=== PATIENT | male | born 2000 | race Caucasian/White ===

== ENCOUNTER 2019-05-08 20:33 | Emergency (ER) | payer BC, SELFPAY ==
[2019-05-08 20:34] VITALS: BP 132/76; PULSE 104; RESP 18; TEMP 36.5; O2SAT 100; BMI 20.4
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
--- NOTE | 2019-05-08 20:41 | ED.RN ---
MASK PLACED FOR STAFF PROTECTION.
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
[2019-05-08] MEDS: Ziprasidone IM 20 MG/ML VIAL IM (20:53)
--- NOTE | 2019-05-08 21:13 | ED.RN ---
TOBIAS GIVEN AT 2044 FOR PT AND STAFF SAFETY. IV DRAWN RIGHT HAND. PT GETTING MORE SEDATE BUT WILL ABRUPTLY SIT UP IN BED. SEIZURE PADS PLACED TO PREVENT PT HARM WHILE THRASHING. SITTER AT BEDSIDE.
[2019-05-08 21:15] LABS: Absolute Lymphocyte Count 2.52 X10^3/uL (0.83-4.51); Absolute Neutrophil Count 3.2 X10^3/uL (2.0-7.7); Basophil# 0.05 X10^3/uL; Basophil% 0.8 % (0-1); Eosinophil# 0.17 X10^3/uL; Eosinophils% 2.6 % (0-5); Hematocrit 45.4 % (40-54); Hemoglobin 15.7 g/dL (13.0-16.5); Lymphocyte # 2.52 X10^3/ul (4.0); Lymphocyte % 37.9 % (19-41); Mean Corp Hgb Conc 34.6 g/dL (32-36); Mean Corpuscular Hgb 29.2 pg (27.0-32.0); Mean Corpuscular Volume 84.4 fL (80-94); Mean Platelet Vol. 9.3 fl (6.2-12.0); Monocyte% 10.5 % (0-10); NRBC Flagged by Analyzer 0 % (0-5); Neutrophil # 3.19 X10^3/uL (2.7-7.7); Neutrophil % 47.9 % (47-70); Platelet Count 393 K/mm3 (150-450); RBC Distribution Width SD 36.6 fl (35.1-43.9); Red Blood Count 5.38 M/mm3 (4.6-6.2); White Blood Count 6.7 K/mm3 (4.4-11.0)
[2019-05-08 21:27] LABS: Anion Gap 15 (5-15); BUN 7 mg/dL (7-18); BUN/Creat Ratio 8.2 RATIO (10-20); Calcium,Total 9.1 mg/dL (8.5-10.1); Chloride 107 mmol/L (98-107); Creatinine, Serum 0.86 mg/dL (0.70-1.30); EST Glomerular Filtration Rate 121 mL/min (>60); Est Glom Filt Rate - Afr Amer 147 mL/min (>60); Estimated Creatinine Clearance 112.13 ml/min; Glucose 108 mg/dL (74-106); Potassium 2.8 mmol/L (3.5-5.1); Sodium Level 138 mmol/L (136-145)
[2019-05-08 21:28] LABS: Amphetamine Urine VISTA NEGATIVE (<1000 ng/mL); Barbiturate Urine VISTA NEGATIVE (< 200 ng/mL); Benzodiazepine Urine VISTA NEGATIVE (< 200 ng/mL); Cocaine Urine VISTA NEGATIVE (< 300 ng/mL); Ecstacy Urine VISTA NEGATIVE (< 500 ng/mL); Methadone Urine VISTA NEGATIVE (< 300 ng/mL); PCP Urine VISTA NEGATIVE (< 25 ng/mL); THC Urine VISTA NEGATIVE (< 50 ng/mL); Vista UDS pH Range 5
[2019-05-08 22:12] VITALS: RESP 16
[2019-05-08 23:47] VITALS: RESP 15
[2019-05-09] VITALS: RESP 15
[2019-05-09 01:24] VITALS: BP 99/65; PULSE 77; RESP 16; O2SAT 98
[2019-05-09 02:42] VITALS: BP 109/66; PULSE 75; RESP 17; O2SAT 99
--- NOTE | 2019-05-09 05:06 | NURSING ---
CALLED CRISIS AT [phone]
--- NOTE | 2019-05-09 05:34 | ED.DEP ---
ED Disposition - Plan for ED Patient: Disposition: Home or Assisted Living Diagnosis: Alcohol intoxication, Suicidal thoughts Instructions: CONTRACT, No Harm, Alcohol Overdose Referrals: Counseling,Center [GROUP OF PHYSICIANS] - As soon as possible (call Friday for appt)
[2019-05-09 05:52] VITALS: BP 116/85; PULSE 103; RESP 20; O2SAT 97
--- NOTE | 2019-05-09 05:59 | ED.RN ---
PATIENT CALLED HIS MOTHER WHO LIVES IN [place] TO COME AND PICK HIM UP. HE CALLED HER AND HE SAID SHE IS COMING TO GET HIM.
--- NOTE | 2019-05-09 08:05 | ED.RN ---
mom present . pt and mother asking what happened. pt does not remember anything. pt okay with talking in front of mother.
[2019-05-09 08:16] VITALS: BP 117/75; PULSE 98; RESP 17; O2SAT 100
== END 2019-05-09 08:10 | disposition home or self-care (01) ==
PROVIDERS: Emergency Provider Emergency Medicine
DX: F10.129 Alcohol abuse with intoxication, unspecified (principal); R45.851 Suicidal ideations; Z78.1 Physical restraint status; F32.9 Major depressive disorder, single episode, unspecified; F41.9 Anxiety disorder, unspecified; F17.200 Nicotine dependence, unspecified, uncomplicated; Z79.899 Other long term (current) drug therapy
CPT/HCPCS: 36415; 80048; 80307; 80320; 85025; 96372; 99285; G0480; J3486